=== PATIENT | male | born 1985 | race Hispanic/Latino ===

== ENCOUNTER 2023-10-05 01:06 | Emergency (ER) | payer BC ==
[~2023-10-05] VITALS: Ht 172.7 cm; Wt 115.7 kg
[2023-10-05 02:30] VITALS: BP 131/52; PULSE 72; RESP 14; O2SAT 97
[2023-10-05] MEDS ORDERED: IBUP-2070 PO (02:35)
[2023-10-05] MEDS ORDERED: CORTSUSP OT (02:35)
== END 2023-10-05 02:42 | disposition home or self-care (01) ==
LOC: EDH 01:06
DX: T16.1XXA Foreign body in right ear, initial encounter (principal)